=== PATIENT | male | born 1930 | race Asian ===

== ENCOUNTER → 2017-08-13 | Outpatient (CLI) | payer MEDICARE, MEDICAID | END | disposition home or self-care (01) | LOC: HKI 09:36 | DX: M17.0 Bilateral primary osteoarthritis of knee (principal) | CPT/HCPCS: 20610; 73562-50 ==

== ENCOUNTER → 2017-10-15 | Outpatient (CLI) | payer MEDICARE, MEDICAID | END | disposition home or self-care (01) | LOC: HKI 09:35 | DX: M17.12 Unilateral primary osteoarthritis, left knee (principal) | CPT/HCPCS: 20610 ==

== ENCOUNTER → 2017-10-26 | Outpatient (CLI) | payer MEDICARE, MEDICAID | END | disposition home or self-care (01) | LOC: HKI 09:21 | DX: M17.12 Unilateral primary osteoarthritis, left knee (principal) | CPT/HCPCS: 20610 ==

== ENCOUNTER → 2017-11-05 | Outpatient (CLI) | payer MEDICARE, MEDICAID | END | disposition home or self-care (01) | LOC: HKI 14:59 | DX: M17.12 Unilateral primary osteoarthritis, left knee (principal) | CPT/HCPCS: 20610 ==

== ENCOUNTER 2018-06-20 20:47 | Emergency (ER) | payer MEDICARE, OTHER, MEDICAID ==
[2018-06-20] MEDS: ACETAMINOPHEN 325 MG TAB PO (22:19)
== END 2018-06-20 23:47 | disposition home or self-care (01) ==
LOC: E/R 20:47
DX: R04.0 Epistaxis (principal); Z79.82 Long term (current) use of aspirin
CPT/HCPCS: 70450; 72125; 99284-25